=== PATIENT | female | born 1990 | race African-American/Black ===

== ENCOUNTER 2017-01-03 14:16 | Emergency (ER) | payer OTHER ==
[2017-01-03 14:30] VITALS: BP 142/72
--- NOTE | 2017-01-03 15:24 | ED Physician Documentation ---
General Adult - HISTORIAN Historian: patient - HPI Stated Complaint: Arm Rash Bilaterally Chief Complaint: General Adult Additional Information: axillary rash early abscess rt axilla. uses underarm deodorant no recent chg no recent ax shave. no prev abscesses Onset: days ago (2) Timing: worse Further Comments: yes (pt obese) - ROS CONST: no problems CVS/RESP: none. denies: chest pain, shortness of breath, cough GI/: denies: abdominal pain, problems urinating NEURO/PSYCH: denies: headache, fainting, dizziness - PAST HX Past History: other (heart murmur) Surgeries/Procedures: other (t and a) Allergies/Adverse Reactions: Allergies Allergy/AdvReac Type Severity Reaction Status Date / Time azithromycin Allergy Mild Verified 01/03/17 14:30 ceftriaxone sodium Allergy Mild Verified 01/03/17 14:30 [From Rocephin] Home Medications: Ambulatory Orders Medication Instructions Recorded Sulfamethoxazole/Trimethoprim 1 each PO BID #20 tab 01/03/17 [Bactrim Ds] - SOCIAL HX Smoking History: greater than 1 pack/day Alcohol Use: occasionally Drug Use: other (occcasional also) - FAMILY HX Family History: No - VITAL SIGNS Vital Signs: Vital Signs Temp Pulse Resp BP Pulse Ox 98.0 F 103 H 18 142/72 98 01/03/17 14:26 01/03/17 14:26 01/03/17 14:26 01/03/17 14:26 01/03/17 14:26 - REVIEWED ASSESSMENTS Nursing Assessment Reviewed: Yes Vitals Reviewed: Yes General Adult Physical Exam - PHYSICAL EXAM GENERAL APPEARANCE: moderate distress EENT: eye inspection normal NECK: normal inspection, supple RESPIRATORY: no resp distress, chest non-tender, breath sounds normal CVS: reg rate & rhythm, heart sounds normal (did not hear murmur) ABDOMEN: soft, non-tender SKIN: warm/dry, normal color (both axilla red ext 1/3 way to elbow possible nodule axilla on rt-just erythema) EXTREMITIES: tenderness NEURO: oriented X3, motor nml, sensation nml, mood/affect nml Discharge Clincal Impression: axillary rash bilat, possible early nodule on rt Prescriptions: Sulfamethoxazole/Trimethoprim [Bactrim Ds] 1 each PO BID #20 tab Referrals: Bud Tapia [Primary Care Provider] - 2 Days Home Medications: Ambulatory Orders Sulfamethoxazole/Trimethoprim [Bactrim Ds] 1 each PO BID #20 tab 01/03/17 Comments: pt to get claritin also. she also will bathe shower tid using lots soap water dc deodorant temporarily plus meds Condition: Good Decision to Admit: NO Decision Time: 15:23
== END 2017-01-03 15:50 ==
LOC: ED 14:16
DX: R21 Rash and other nonspecific skin eruption (principal)
CPT/HCPCS: 99283

== ENCOUNTER 2018-07-14 11:25 | Emergency (ER) | payer OTHER ==
--- NOTE | 2018-07-14 11:46 | ED Physician Documentation ---
General Adult - HISTORIAN Historian: patient - HPI Stated Complaint: rings stuck on right hand swelling and pain Chief Complaint: Hand Injury Onset: hours (5) Timing: still present Severity: mild Further Comments: yes (She reports she usually takes her rings off at night however she did not and she did wake this am hands were swollen and she cannot remove her rings. She can feel her finger and hand has FROM) Last known Well Code/Unknown Code: Unknown - ROS CONST: no problems - PAST HX Past History: hypertension (she is not currently taking her meds ) Allergies/Adverse Reactions: Allergies Allergy/AdvReac Type Severity Reaction Status Date / Time azithromycin Allergy Mild Verified 07/14/18 13:12 ceftriaxone sodium Allergy Mild Verified 07/14/18 13:12 [From Rocephin] ceftriaxone sodium Allergy Intermediate Uncoded 07/14/18 13:12 azithromycin Allergy Mild Uncoded 06/29/12 22:15 Home Medications: Ambulatory Orders Medication Instructions Recorded Sulfamethoxazole/Trimethoprim 1 each PO BID #20 tab 01/03/17 [Bactrim Ds] - SOCIAL HX Smoking History: cigarettes Alcohol Use: none Drug Use: none - FAMILY HX Family History: No - VITAL SIGNS Vital Signs: Vital Signs Temp Pulse Resp BP Pulse Ox 142/72 01/03/17 14:26 - REVIEWED ASSESSMENTS Nursing Assessment Reviewed: Yes Vitals Reviewed: Yes Progress - Progress Progress: 1310: rings removed noted improved pain. Plan discussed and she is agreeable DG General Adult Physical Exam - PHYSICAL EXAM GENERAL APPEARANCE: no distress EENT: eye inspection normal NECK: normal inspection RESPIRATORY: no resp distress, chest non-tender, breath sounds normal CVS: reg rate & rhythm, heart sounds normal, equal pulses SKIN: warm/dry EXTREMITIES: non-tender, edema (bilateral hands right hand first and ring finger with a ring that is not able to be removed. She has pain with palpation and pain from the ring squeezing her report. She is able to move all fingers normally. She has swelling. Pulses + cap refill +) NEURO: oriented X3 Discharge Clincal Impression: Hand swelling Qualifiers: Laterality: bilateral Qualified Code(s): M79.89 - Other specified soft tissue disorders Referrals: Bud Tapia [Primary Care Provider] - 2 Days Comments: 1. Keep ice to the area 2. Increase water intake 3. Follow up with PCP to restart meds 4. Return to ER for any concerns Condition: Stable Disposition: 01 HOME, SELF-CARE Decision to Admit: NO Date of Decison to Admit: 07/14/18 Decision Time: 13:19
[2018-07-14 11:47] VITALS: BP 118/67
== END 2018-07-14 13:25 | disposition home or self-care (01) ==
LOC: ED 11:25
DX: M79.89 Other specified soft tissue disorders (principal)
CPT/HCPCS: 99281; 99282

== ENCOUNTER 2018-10-27 14:13 | Emergency (ER) | payer SELFPAY ==
[2018-10-27 14:44] VITALS: BP 134/78
--- NOTE | 2018-10-27 14:59 | ED Physician Documentation ---
Upper Extremity Problem - HISTORIAN Historian: patient - HPI Stated Complaint: Ring stuck on finger Chief Complaint: Upper Extremity Problem (Ring on finger stuck) Additional Information: Patient is a 28-year-old female who presents to the ER with ring stuck on left index finger- LEGAL ARCHIVIST removed it without having to cut ring off. Patient states that she has been trying for a couple of hours to get it off. Location: L hand (Left index finger) Onset: hours Timing: still present Duration: constant Recent Injury: No Context: prolonged pressure on ext Where: home Severity: mild Associated Symptoms: denies: back pain Exacerbated By: nothing Relieved By: nothing Quality: tenderness - ROS CONST: no problems EYES/ENT: none CVS/RESP: none GI/: none MS/SKIN/LYMPH: denies: leg pain NEURO/PSYCH: denies: headache, fainting - PAST HX Past History: none Other History: none Surgeries/Procedures: none Immunizations: UTD Allergies/Adverse Reactions: Allergies Allergy/AdvReac Type Severity Reaction Status Date / Time azithromycin Allergy Mild Verified 10/27/18 14:44 ceftriaxone sodium Allergy Mild Verified 10/27/18 14:44 [From Rocephin] ceftriaxone sodium Allergy Intermediate Uncoded 10/27/18 14:44 azithromycin Allergy Mild Uncoded 10/27/18 14:44 Home Medications: Ambulatory Orders Medication Instructions Recorded NK 10/27/18 - SOCIAL HX Smoking History: greater than 1 pack/day Alcohol Use: none Drug Use: marijuana - FAMILY HX Family History: none - VITAL SIGNS Vital Signs: Vital Signs Temp Pulse Resp BP Pulse Ox 98.4 F 81 19 134/78 98 10/27/18 14:40 10/27/18 14:40 10/27/18 14:40 10/27/18 14:40 10/27/18 14:40 Procedures Progress: ring removed from left index finger without having to cut ring Upper Extremity Problem - EXAM General Appearance: no acute distress, alert Skin: warm/dry, normal color Shoulder Exam: no evidence of injury Elbow/Forearm Exam: no evidence of injury Wrist Exam: no evidence of injury Hand Exam: no evidence of injury, swelling (left index finger- LEGAL ARCHIVIST removed ring from finger- without cutting ring) Neuro/Tendon: normal sensation, normal motor functions, normal tendon functions EENT: eye inspection normal, ENT inspection normal CVS: heart sounds normal, equal pulses Peripheral: sensation nml, motor nml Central: oriented X3, CN's nml as tested, motor nml, sensation nml, mood/affect nml, cognition normal Respiratory: breath sounds nml Discharge Clincal Impression: Ring or other jewelry causing external constriction, initial encounter Referrals: Bud Tapia [Primary Care Provider] - 2 Days Additional Instructions: Keep rings off fingers May use ice to finger Keep elevated if starting to swell Condition: Good Disposition: 01 HOME, SELF-CARE Decision to Admit: NO Decision Time: 15:06
== END 2018-10-27 14:57 | disposition home or self-care (01) ==
LOC: ED 14:13
DX: S60.441A External constriction of left index finger, initial encounter (principal); W49.04XA Ring or other jewelry causing external constriction, initial encounter; Y93.9 Activity, unspecified; Y92.009 Unspecified place in unspecified non-institutional (private) residence as the place of occurrence of the external cause
CPT/HCPCS: 99281; 99282